=== PATIENT | male | born 1955 | race Caucasian/White ===

== ENCOUNTER 2020-03-11 09:40 | Emergency (ER) | payer OTHER ==
[2020-03-11 10:23] LABS: ABSOLUTE BASOPHILS # (AUTO) 0.1 10^3/uL (0.0-0.2); ABSOLUTE EOSINOPHILS # (AUTO) 0.2 10^3/uL (0.0-0.6); ABSOLUTE LYMPHOCYTES (AUTO) 1.9 10^3/uL (0.5-4.7); ABSOLUTE MONOCYTES (AUTO) 0.7 10^3/uL (0.1-1.4); ABSOLUTE NEUT (AUTO) 3.2 10^3/uL (1.7-8.2); BASOPHILS % (AUTO) 1.2 % (0-2); EOSINOPHILS % (AUTO) 2.7 % (0-6); HEMATOCRIT 41.2 % (37.9-51.0); HEMOGLOBIN 14.1 g/dL (13.5-17.0); LYMPHOCYTES % (AUTO) 31.1 % (13-45); MEAN CORPUSCULAR HEMOGLOBIN 35.1 pg (27.0-33.4); MEAN CORPUSCULAR HGB CONC 34.2 g/dL (32.0-36.0); MEAN CORPUSCULAR VOLUME 103 fl (80-97); MONOCYTES % (AUTO) 11.4 % (3-13); PLATELET COUNT 109 10^3/uL (150-450); RED BLOOD COUNT 4.01 10^6/uL (4.35-5.55); RED CELL DISTRIBUTION WIDTH 14.9 % (11.5-14.0); SEGMENTED NEUTROPHILS % (AUTO) 53.6 % (42-78); TOTAL CELLS COUNTED % (AUTO) 100 %
[2020-03-11 10:25] LABS: APPEARANCE,URINE CLEAR; BILIRUBIN,URINE NEGATIVE (NEGATIVE); COLOR,URINE YELLOW; GLUCOSE, URINE NEGATIVE (NEGATIVE); KETONES,URINE NEGATIVE (NEGATIVE); LEUKOCYTE ESTERASE,URINE NEGATIVE (NEGATIVE); NITRITE,URINE NEGATIVE (NEGATIVE); PROTEIN,URINE NEGATIVE (NEGATIVE); URINE SPECIFIC GRAVITY 1.008; UROBILINOGEN,URINE NEGATIVE mg/dL (<2.0)
[2020-03-11 10:35] LABS: ALBUMIN 4.2 g/dL (3.5-5.0); ALCOHOL 283 mg/dL (NONE DETECTED); ALKALINE PHOSPHATASE 177 U/L (38-126); ANION GAP 8 (5-19); ASPARTATE AMINO TRANSFERASE 83 U/L (17-59); BILIRUBIN,DIRECT 0.2 mg/dL (0.0-0.4); BILIRUBIN,TOTAL 0.8 mg/dL (0.2-1.3); BLOOD UREA NITROGEN 19 mg/dL (7-20); CALCIUM 9.5 mg/dL (8.4-10.2); CARBON DIOXIDE 27 mmol/L (22-30); CHLORIDE 106 mmol/L (98-107); GLUCOSE 146 mg/dL (75-110); POTASSIUM 4.8 mmol/L (3.6-5.0); TOTAL PROTEIN 8.5 g/dL (6.3-8.2)
[2020-03-11 10:40] LABS: URINE AMPHETAMINES SCREEN NEGATIVE; URINE BARBITURATES SCREEN NEGATIVE; URINE BENZODIAZEPINES SCREEN NEGATIVE; URINE COCAINE SCREEN NEGATIVE; URINE MARIJUANA (THC) SCREEN NEGATIVE; URINE METHADONE SCREEN NEGATIVE; URINE PHENCYCLIDINE SCREEN NEGATIVE
[2020-03-11] MEDS ORDERED: NORMAL SALINE 500 ML IV ONE (11:12)
--- NOTE | 2020-03-11 11:14 | EKG REPORT ---
SEVERITY:- NORMAL ECG - SINUS RHYTHM : Confirmed by: Honorio Ballard 11-Mar-2020 11:14:28
--- NOTE | 2020-03-11 11:41 | ER Document Report ---
ED General - General Chief Complaint: Altered Mental Status Stated Complaint: POSSIBLE ELEVATED AMMONIA LEVEL Time Seen by Provider: 03/11/20 10:18 Mode of Arrival: Medic Information source: Patient Notes: 64-year-old man who presents to the emergency department with a history of hallucinations and altered mental status. He has a history of cirrhosis of the liver and alcohol abuse. Apparently his noted the hallucinations this morning and called an ambulance he was brought to the emergency department. Presently the patient is alert and talkative and notes that he is drinking heavi ly, generally liquor/bourbon. His last drink was this morning prior to coming into the emergency department. He is really moved to the area recently and has no primary care physician. He has a history of hypertension and diabetes mellitus. - Related Data Allergies/Adverse Reactions: Penicillins Allergy (Verified 03/11/20 11:27) bee stings Allergy (Uncoded 03/11/20 11:27) Home Medications: lactulose, propanolol, pantoprazole, glyburide, duloxetine Past Medical History - Social History Smoking Status: Never Smoker Frequency of alcohol use: Heavy Drug Abuse: None Family History: Reviewed & Not Pertinent Patient has homicidal ideation: No Endocrine Medical History: Reports: Hx Diabetes Mellitus Type 2 Review of Systems - Review of Systems Notes: Constitutional: + Alcohol intoxication HENT: Negative for sore throat. Eyes: Negative for visual changes. Cardiovascular: Negative for chest pain. Respiratory: Negative for shortness of breath. Gastrointestinal: Negative for abdominal pain, vomiting or diarrhea. Genitourinary: Negative for dysuria. Musculoskeletal: Negative for back pain. Skin: Negative for rash. Neurological: Negative for headaches, weakness or numbness. 10 point ROS negative except as marked above and in HPI. Physical Exam - Vital signs Vitals: Pulse Ox 91 L 03/11/20 09:54 - Notes Notes: PHYSICAL EXAMINATION: Physical Exam: General: Well-nourished well-developed overweight 64-year-old male in no acute distress HEENT: NC/AT, pupils equal round and reactive to light, MM moist,nares clear, oropharynx clear, airway patent Neck: supple, no adenopathy, no masses. Good range of motion Lungs: clear, no wheezing, no rales no rhonchi CVS: Regular rate and rhythm no murmur gallop or rub Abdomen: Soft, active, nontender, no masses, no hepatosplenomegaly Ext: No edema, clubbing or cyanosis. Neuro: Alert and responsive, moving all 4 extremities on command, cranial nerves intact, no focal findings Skin: Intact no open lesions, no rash PSYCH: Normal mood, normal affect. Course - Re-evaluation Re-evalutation: 03/11/20 12:40 Patient has been alert and responsive throughout his hospital stay, blood sugar normal, EtOH elevated. Ammonia normal. I am encouraging the patient to get help with his alcohol abuse, given his diagnosis of cirrhosis. He states that he is not interested in getting help, he knows what he needs to do, and requesti jacob to go home. - Vital Signs Vital signs: Temp Pulse Resp BP Pulse Ox 98.2 F 58 L 19 131/75 H 96 03/11/20 09:56 03/11/20 13:01 03/11/20 13:55 03/11/20 13:55 03/11/20 13:55 - Laboratory Result Diagrams: 03/11/20 10:01 03/11/20 10:01 Laboratory results interpreted by me: 03/11/20 03/11/20 03/11/20 09:47 10:01 10:01 RBC 4.01 L MCV 103 H MCH 35.1 H RDW 14.9 H Plt Count 109 L Glucose 146 H POC Glucose 156 H AST 83 H Alkaline Phosphatase 177 H Total Protein 8.5 H 03/11/20 11:38 I have reviewed laboratory data and used this information for the treatment decisions regarding the patient. - EKG Interpretation by Me EKG shows normal: Sinus rhythm - EKG : Rate of 61, otherwise normal EKG with no acute ST or T wave abnormalities noted. The normal axis. Discharge - Discharge Clinical Impression: History of cirrhosis of liver Alcohol intoxication Qualifiers: Complication of substance-induced condition: with unspecified complication Qualified Code(s): F10.929 - Alcohol use, unspecified with intoxication, unspecified Alcoholic hepatitis Qualifiers: Ascites presence: without ascites Qualified Code(s): K70.10 - Alcoholic hepatitis without ascites Condition: Good Disposition: HOME, SELF-CARE Instructions: Acute Alcohol Intoxication ([facility]), Cirrhosis ([facility]) Additional Instructions: You are seen in the emergency department today with alcohol intoxication, history of alcohol abuse and cirrhosis. You should seek help in discontinuing the use of alcohol or your symptoms will worsen over time. Please follow-up with your primary care doctor regarding your alcohol use and diabetes mellitus. If your symptoms are acutely worsening or if you were having more difficulties he may return to the emergency department for further evaluation and treatment HOME CARE INSTRUCTIONS & INFORMATION: Thank you for choosing us for your medical needs. We hope you're satisfied with the care you received. After you leave, you must properly care for your problem and, at the same time, observe its progress. Any condition can change. Some illnesses can change rapidly over hours or days. If your condition worsens, return to the Emergency Department or see your physician promptly. ABOUT YOUR X-RAYS AND EKG'S: If you had an EKG or X-rays taken, they have been read by the Emergency Physician. The X-rays and EKG's will also be read by a Radiologist or Quill Layer within 24 hours. If discrepancies are noted, you will be notified by telephone. Please be certain the ED has a correct telephone number & address where you can be reached. Also, realize that some fractures or abnormalities do not show up on initial X-rays. If your symptoms continue, see your physician. ABOUT YOUR LABORATORY TEST: If you had laboratory tests, the results have been reviewed by the Emergency Physician. Some test results (for example cultures) may not be available for several days. You will be contacted if any test result shows you need additional treatment. Please be certain the ED has a correct telephone number and address where you can be reached. ABOUT YOUR MEDICATIONS: You will receive instructions on how to take your medicine on the prescription label you receive. Additional information may be provided by the Pharmacy. If you have questions afterwards, call the ED for clarification or further instructions. Some prescribed medications may cause drowsiness. Do not perform tasks such as driving a car or operating machinery without consulting your Pharmacist. If you feel you need a refill of pain medication, your condition will need re-evaluation. Please do not call for a refill of any medication. ABOUT YOUR SIGNATURE: Signature of this document acknowledges to followin. Understanding that you received emergency treatment and that you may be released before al medical problems are known or treated. Please be certain the ED has a correct phone number & address where you can be reached. 2. Acknowledgement that you will arrange for follow-up care as recommended. 3. Authorization for the Emergency Physician to provide information to your follow-up Physician in order to maximize your care. AT ANY TIME, IF YOUR SYMPTOMS CHANGE SIGNIFICANTLY OR WORSEN OR YOU DEVELOP NEW SYMPTOMS, RETURN TO THE EMERGENCY DEPARTMENT IMMEDIATELY FOR RE-EVALUATION. OUR GOAL IS TO PROVIDE EXCELLENT MEDICAL CARE! WE HOPE THAT WE HAVE MET YOUR EXPECTATIONS DURING YOUR EMERGENCY DEPARTMENT VISIT AND THAT YOU FEEL YOU HAVE RECEIVED EXCELLENT CARE!
[2020-03-11 14:05] VITALS: BP 131/75
== END 2020-03-11 14:07 | disposition home or self-care (01) ==
LOC: ER 09:40
DX: F10.129 Alcohol abuse with intoxication, unspecified (principal); K70.10 Alcoholic hepatitis without ascites; K74.60 Unspecified cirrhosis of liver; E66.3 Overweight; I10 Essential (primary) hypertension; E11.9 Type 2 diabetes mellitus without complications; Z79.899 Other long term (current) drug therapy; Z79.84 Long term (current) use of oral hypoglycemic drugs
CPT/HCPCS: 93005; 99285; 36415; 82962; 80307 ×2; 82140; 83735; 85025; 80053; 81001; 93010; J7040

== ENCOUNTER 2020-05-15 10:11 | Emergency (ER) | payer OTHER ==
--- NOTE | 2020-05-15 11:56 | ER Document Report ---
ED General - General Chief Complaint: Alcohol Withdrawl Stated Complaint: ALCOHOL WITHDRAWL Time Seen by Provider: 05/15/20 11:12 Primary Care Provider: [facility] [Provider Group] - Follow up in 3-5 days [facility] [Provider Group] - Follow up in 3-5 days HAYDEE MEJIAS PA-C [PHYSICIAN CORPORATE QUALITY ASSURANCE MANAGER] - Follow up in 3-5 days Notes: Patient is a 64-year-old male who presents to the emergency department for [facility] help with alcohol detox. Patient was seen by his primary care provider and when they went to go take his temperature, his temperature was 101. Patient arrived to the emergency department and did not have a fever. He did not take any antipyretics. Patient states that it was hot outside. Patient does state that he is short of breath, but is mainly short of breath upon exertion. Denies any shortness of breath at rest. Denies any chest pain. Patient has a history of hypertension, GERD, and diabetes. Patient is currently on propanolol, pantoprazole, glyburide, and lactulose. - Related Data Allergies/Adverse Reactions: Penicillins Allergy (Verified 05/15/20 11:17) bee stings Allergy (Uncoded 03/11/20 11:27) Past Medical History - Social History Smoking Status: Never Smoker Frequency of alcohol use: Heavy Drug Abuse: None Family History: Reviewed & Not Pertinent Patient has homicidal ideation: No - Past Medical History Cardiac Medical History: Reports: Hx Hypercholesterolemia, Hx Hypertension Pulmonary Medical History: Reports: Hx Pneumonia Endocrine Medical History: Reports: Hx Diabetes Mellitus Type 2 Past Surgical History: Reports: Hx Abdominal Surgery, Hx Orthopedic Surgery - back surgeryx2, Hx Tonsillectomy Review of Systems - Review of Systems Notes: REVIEW OF SYSTEMS: CONSTITUTIONAL : Denies recent illness. Denies recent unintentional weight loss. See HPI. EENT: Denies eye, ear, throat, or mouth pain, discharge, or symptoms. Denies nasal or sinus congestion. CARDIOVASCULAR: Denies chest pain. RESPIRATORY: See HPI. GASTROINTESTINAL: Denies nausea, vomiting, and diarrhea. Denies abdominal pain. Denies constipation. GENITOURINARY: Denies difficulty urinating, burning, blood in urine, urgency or frequency. MUSCULOSKELETAL: Denies neck and back pain. Denies joint pain or swelling. SKIN: Denies rash, itchiness, or lesions HEMATOLOGIC : Denies easy bruising or bleeding. LYMPHATIC: Denies swollen, painful, enlarged glands. NEUROLOGICAL: Denies no numbness or tingling denies weakness. Denies headache. Denies altered mental status. Denies alteration in speech. PSYCHIATRIC: Denies stress, anxiety, alteration in sleep patterns, or depres amy. All other systems reviewed and negative. Physical Exam - Vital signs Vitals: Temp 99.2 F 05/15/20 10:30 - Notes Notes: PHYSICAL EXAMINATION: GENERAL: Appears morbidly obese, no acute distress. HEAD: Normocephalic, atraumatic. EYES: PERRL, conjunctiva normal, all extraocular movements intact, sclera nonicteric ENT: Moist mucous membranes. NECK: Supple, no noticeable swelling, redness, rash. Normal range of motion. LUNGS: Equal breath sounds bilaterally and clear to auscultation. No wheezes rales or rhonchi. CARDIOVASCULAR: S1-S2, regular rate, regular rhythm. Radial pulses 2+, normal. ABDOMEN: Normoactive bowel sounds. Soft, nontender, no guarding, no rebound tenderness, and no masses palpated. EXTREMITIES:3+ pitting edema to BLE with venous stasis ulcers NEUROLOGICAL: Moves all extremities upon command. Strength 5/5 in all extremities. PSYCH: Normal mood, normal affect. SKIN: Warm, dry. No rash, lesions, ulcerations noted. Normal skin turgor. Course - Re-evaluation Re-evalutation: 05/15/20 Hematology is unremarkable. Hematology is unremarkable. PT and PTT are elevated, most likely due to his alcoholic liver disease. Chemistries are unremarkable. Total bilirubin is 3.0, most likely due to the sludge noted in his gallbladder. BNP is 546. Patient is not having an acute CHF exacerbation. Ammonia level is unremarkable. Lipase is also unremarkable. Urinalysis shows that the patient is slightly dehydrated. I discussed this case with Dr. Cobos, my attending and he states that the patient can follow-up on an outpatient basis for his gallbladder sludge. There was only a small amount of ascites noted on CT scan and ultrasound will hold off on paracentesis at this time. We will start him on Librium to help him with his alcohol detox. We will also send him for wound care, as he has bilateral venous stasis ulcers noted. No evidence of cellulitis. Follow-up precautions were given. Verbal discharge instructions were given to the patient. They verbalized understanding. They are stable for discharge. - Vital Signs Vital signs: Temp Pulse Resp BP Pulse Ox 99.5 F 88 16 166/79 H 96 05/15/20 19:00 05/15/20 18:11 05/15/20 18:11 05/15/20 18:11 05/15/20 18:11 - Laboratory Result Diagrams: 05/15/20 12:45 05/15/20 12:45 Laboratory results interpreted by me: 05/15/20 05/15/20 05/15/20 12:45 12:45 12:45 RBC 3.26 L Hgb 11.5 L Hct 34.4 L MCV 106 H MCH 35.4 H RDW 16.6 H Plt Count 68 L Lymph % (Auto) 11.9 L Sweet [place] % (Auto) 14.4 H PT APTT Calcium 7.8 L Total Bilirubin 3.0 H Direct Bilirubin 1.2 H AST 137 H Alkaline Phosphatase 201 H NT-Pro-B Natriuret Pep 546 H Albumin 3.3 L Lipase Urine Protein Urine Ketones Urine Blood Urine Bilirubin Urine Urobilinogen 05/15/20 05/15/20 05/15/20 12:45 12:45 14:25 RBC Hgb Hct MCV MCH RDW Plt Count Lymph % (Auto) Sweet [place] % (Auto) PT 16.6 H APTT 45.2 H Calcium Total Bilirubin Direct Bilirubin AST Alkaline Phosphatase NT-Pro-B Natriuret Pep Albumin Lipase 353.2 H Urine Protein 100 H Urine Ketones TRACE H Urine Blood SMALL H Urine Bilirubin SMALL H Urine Urobilinogen 4.0 H Discharge - Discharge Clinical Impression: Alcoholism, Gallbladder sludge, Lower extremity venous stasis Condition: Stable Disposition: HOME, SELF-CARE Instructions: Gallbladder Disease ([facility]) Additional Instructions: You were seen today in the emergency department for an inquiry on detox. Please follow-up with the detox facility that you are going to. Please call them tonight or tomorrow and let them know that you are being started on Librium. This will help you stop drinking alcohol. Follow-up with wound care for your leg wounds. These are called venous stasis ulcers. Also, you have sludge in your gallbladder. This can be taking care of on an outpatient basis. Follow-up with the surgeon in regards to this visit. Prescriptions: Chlordiazepoxide HCl 25 mg PO Q6H #50 capsule Referrals: Wound Care [Provider Group] - Follow up in 3-5 days HAYDEE MEJIAS PA-C [PHYSICIAN CORPORATE QUALITY ASSURANCE MANAGER] - Follow up in 3-5 days [facility] [Provider Group] - Follow up in 3-5 days
[2020-05-15 13:19] LABS: ABSOLUTE BASOPHILS # (AUTO) 0.1 10^3/uL (0.0-0.2); ABSOLUTE EOSINOPHILS # (AUTO) 0.1 10^3/uL (0.0-0.6); ABSOLUTE LYMPHOCYTES (AUTO) 0.6 10^3/uL (0.5-4.7); ABSOLUTE MONOCYTES (AUTO) 0.8 10^3/uL (0.1-1.4); ABSOLUTE NEUT (AUTO) 3.7 10^3/uL (1.7-8.2); BASOPHILS % (AUTO) 1.4 % (0-2); EOSINOPHILS % (AUTO) 2.5 % (0-6); HEMATOCRIT 34.4 % (37.9-51.0); HEMOGLOBIN 11.5 g/dL (13.5-17.0); LYMPHOCYTES % (AUTO) 11.9 % (13-45); MEAN CORPUSCULAR HEMOGLOBIN 35.4 pg (27.0-33.4); MEAN CORPUSCULAR HGB CONC 33.5 g/dL (32.0-36.0); MEAN CORPUSCULAR VOLUME 106 fl (80-97); MONOCYTES % (AUTO) 14.4 % (3-13); RED BLOOD COUNT 3.26 10^6/uL (4.35-5.55); RED CELL DISTRIBUTION WIDTH 16.6 % (11.5-14.0); SEGMENTED NEUTROPHILS % (AUTO) 69.8 % (42-78); TOTAL CELLS COUNTED % (AUTO) 100 %; WHITE BLOOD COUNT 5.3 10^3/uL (4.0-10.5)
[2020-05-15 13:32] LABS: ALBUMIN 3.3 g/dL (3.5-5.0); ALKALINE PHOSPHATASE 201 U/L (38-126); ANION GAP 6 (5-19); ASPARTATE AMINO TRANSFERASE 137 U/L (17-59); BILIRUBIN,DIRECT 1.2 mg/dL (0.0-0.4); BLOOD UREA NITROGEN 11 mg/dL (7-20); CALCIUM 7.8 mg/dL (8.4-10.2); CARBON DIOXIDE 30 mmol/L (22-30); CHLORIDE 104 mmol/L (98-107); GLUCOSE 80 mg/dL (75-110); POTASSIUM 3.7 mmol/L (3.6-5.0)
[2020-05-15 13:38] LABS: PLATELET COUNT 68 10^3/uL (150-450)
[2020-05-15 13:48] LABS: TROPONIN I 0.018 ng/mL
--- NOTE | 2020-05-15 13:49 | RADIOLOGY REPORT (SQ) ---
EXAM DESCRIPTION: CHEST SINGLE VIEW IMAGES COMPLETED DATE/TIME: 05/15/2020 1:41 pm REASON FOR STUDY: shortness of breath COMPARISON: None. NUMBER OF VIEWS: One view. TECHNIQUE: Single frontal radiographic view of the chest acquired. LIMITATIONS: None. FINDINGS: LUNGS AND PLEURA: Low lung volumes. No opacities, masses or pneumothorax. No pleural eff usion. MEDIASTINUM AND HILAR STRUCTURES: No masses. Contour normal. HEART AND VASCULAR STRUCTURES: Heart enlarged without failure. Normal vasculature. BONES: No acute findings. HARDWARE: None in the chest. OTHER: No other significant finding. IMPRESSION: HEART ENLARGED WITHOUT FAILURE. NO OTHER SIGNIFICANT RADIOGRAPHIC FINDING IN THE CHEST. TECHNICAL DOCUMENTATION: JOB ID: [id number] 2010 [employer]- All Rights Reserved Reading location - IP/workstation name: [email or web address]
[2020-05-15 14:32] LABS: INTERNATIONAL RATION (INR) 1.33; PROTHROMBIN TIME 16.6 SEC (11.4-15.4)
[2020-05-15 14:33] LABS: PARTIAL THROMBOPLASTIN TIME 45.2 SEC (23.5-35.8)
[2020-05-15 14:43] LABS: APPEARANCE,URINE SLIGHTLY-CLOUDY; BILIRUBIN,URINE SMALL (NEGATIVE); COLOR,URINE AMBER; GLUCOSE, URINE NEGATIVE (NEGATIVE); KETONES,URINE TRACE mg/dL (NEGATIVE); LEUKOCYTE ESTERASE,URINE NEGATIVE (NEGATIVE); NITRITE,URINE NEGATIVE (NEGATIVE); PROTEIN,URINE 100 mg/dL (NEGATIVE); URINE SPECIFIC GRAVITY 1.028
--- NOTE | 2020-05-15 16:08 | RADIOLOGY REPORT (SQ) ---
EXAM DESCRIPTION: CT ABD/PELVIS NO ORAL OR IV IMAGES COMPLETED DATE/TIME: 05/15/2020 3:53 pm REASON FOR STUDY: abdominal distension COMPARISON: None. TECHNIQUE: CT scan of the abdomen and pelvis performed without intravenous or oral contrast. Images reviewed with lung, soft tissue, and bone windows. Reconstructed coronal and sagittal MPR images revi ewed. All images stored on PACS. All CT scanners at this facility use dose modulation, iterative reconstruction, and/or weight based d osing when appropriate to reduce radiation dose to as low as reasonably achievable (ALARA). [facility]: Dose Right [facility]: CareDose [facility]: Dose Right [facility]: Teradose 4D [facility]: Smart Tykli RADIATION DOSE: CT Rad equipment meets quality standard of care and radiation dose reduction techniq ues were employed. CTDIvol: 18.9 mGy. DLP: 1149 mGy-cm.mGy. LIMITATIONS: None. FINDINGS: LOWER CHEST: No significant findings. No nodules or infiltrates. NON-CONTRASTED LIVER, SPLEEN, ADRENALS: Evaluation limited by lack of IV contrast. Hepatomegaly. He terogenous appearance of the liver with diffuse low-attenuation. No identified significant masses. PANCREAS: No masses. No peripancreatic inflammatory changes. GALLBLADDER: Faint high density material in the lumen. No inflammatory changes to suggest cholecystit is. RIGHT KIDNEY AND URETER: No suspicious masses. Assessment limited by lack of IV contrast. No signif icant calcifications. No hydronephrosis or hydroureter. LEFT KIDNEY AND URETER: No suspicious masses. Assessment limited by lack of IV contrast. No signifi cant calcifications. No hydronephrosis or hydroureter. AORTA AND RETROPERITONEUM: No aneurysm. No retroperitoneal masses or adenopathy. BOWEL AND PERITONEAL CAVITY: No obvious masses or inflammatory changes. Small amount of free fluid i n the pericolic gutters extending to the lower abdomen. APPENDIX: Normal. PELVIS, BLADDER, AND ABDOMINAL WALL:No abnormal masses. No free fluid. Bladder normal. BONES: No significant findings. OTHER: No other significant finding. IMPRESSION: 1. HEPATOMEGALY. MARKED HETEROGENOUS APPEARANCE OF THE LIVER WITH LOW-ATTENUATION CONSISTENT WITH FA TTY INFILTRATION AND CIRRHOSIS. 2. SMALL AMOUNT OF ASCITES. 3. POSSIBLE SLUDGE OR SMALL STONES IN THE GALLBLADDER. 4. NO OTHER SIGNIFICANT OR ACUTE PROCESS IN THE ABDOMEN OR PELVIS. COMMENT: Quality ID # [id number]: Final reports with documentation of one or more dose reduction techniques (e.g., Automated exposure control, adjustment of the mA and/or kV according to patient size, use of iterative reconstruction technique) TECHNICAL DOCUMENTATION: JOB ID: [id number] 2010 [employer]- All Rights Reserved Reading location - IP/workstation name: [email or web address]
[2020-05-15] MEDS ORDERED: HYDROMORPHONE HCL INJ/PF 2 MG/ML AMPULE IV ONE (17:08)
--- NOTE | 2020-05-15 17:57 | RADIOLOGY REPORT (SQ) ---
EXAM DESCRIPTION: U/S ABDOMEN LIMITED W/O DOP IMAGES COMPLETED DATE/TIME: 05/15/2020 5:21 pm REASON FOR STUDY: eval cholecystitis COMPARISON: None. TECHNIQUE: Dynamic and static grayscale images acquired of the abdomen and recorded on PACS. Additio nal selected color Doppler and spectral images recorded. LIMITATIONS: Bowel gas and body habitus. FINDINGS: PANCREAS: Not seen LIVER: Hepatomegaly. Increased echogenicity. Coarsely echogenic. LIVER VASCULATURE: Not seen. GALLBLADDER: No stones. There is some sludge. No wall thickening. ULTRASOUND-DETECTED RUBIO'S SIGN: Negative. INTRAHEPATIC DUCTS AND COMMON DUCT: Not seen. AORTA: Not seen. RIGHT KIDNEY: Normal size, 11.8 cm. Normal echogenicity. No solid or suspicious masses. No hydroneph rosis. No calcifications. PERITONEAL AND RIGHT PLEURAL SPACE: Small amount of ascites. OTHER: No other significant findings. IMPRESSION: Somewhat limited study. There is hepatomegaly with hepatic steatosis. Cannot exclude c irrhosis. Small amount of ascites. There is some sludge in the gallbladder. TECHNICAL DOCUMENTATION: JOB ID: [id number] [employer]- All Rights Reserved Reading location - IP/workstation name: [email or web address]
[2020-05-15 18:11] VITALS: BP 166/79
--- NOTE | 2020-05-15 19:27 | EKG REPORT ---
SEVERITY:- ABNORMAL ECG - SINUS RHYTHM BORDERLINE T ABNORMALITIES, ANT-LAT LEADS PROLONGED QT INTERVAL : Confirmed by: Jorge Navarrete MD 15-May-2020 19:27:09
== END 2020-05-15 19:09 | disposition home or self-care (01) ==
LOC: ER 10:11
DX: F10.20 Alcohol dependence, uncomplicated (principal); K82.8 Other specified diseases of gallbladder; K76.0 Fatty (change of) liver, not elsewhere classified; K70.9 Alcoholic liver disease, unspecified; R18.8 Other ascites; E11.622 Type 2 diabetes mellitus with other skin ulcer; L97.929 Non-pressure chronic ulcer of unspecified part of left lower leg with unspecified severity; L97.919 Non-pressure chronic ulcer of unspecified part of right lower leg with unspecified severity; E86.0 Dehydration; R06.02 Shortness of breath; I10 Essential (primary) hypertension; Z88.0 Allergy status to penicillin; Z91.030 Bee allergy status
CPT/HCPCS: 93005; 99285; 96374; 36415; 87040; 82140; 83690; 85025; 85610; 85730; 80053; 81001; 84484; 83880; 71045; 76705; 74176; 93010; J1170